=== PATIENT | male | born 1985 | race Caucasian/White ===

== ENCOUNTER → 2023-01-07 | Outpatient (CLI) | payer OTHER ==
[~2023-01-07] MED LIST: GABA300 PO; HYDR1TAB94 PO; METO50ER PO; OMEP20ER PO; ONDA4ODT MM; SIMV10 PO; TRAM50 PO
[2023-01-08 10:10] LABS: HIV AB/P24 AG SCREEN Non Reactive (Non Reactive)
[2023-01-09 03:10] LABS: CHLAMYDIA TRACHOMATIS, NAA Negative (Negative)
== END ==
LOC: LAB SHORT 18:35 → LAB 18:35
PROVIDERS: Family Medicine
DX: Z72.51 High risk heterosexual behavior (principal)
CPT/HCPCS: 86592; 87389; 87491; 87591